=== PATIENT | male | born 1940 | race Caucasian/White ===

== ENCOUNTER 2021-04-14 06:52 | Emergency (ER) | payer OTHER, SELFPAY ==
--- NOTE | ~2021-04-14 | XR_ITS ---
EXAMINATION: XR CHEST CLINICAL INFORMATION: Weakness COMPARISON: None TECHNIQUE: Frontal view of the chest was obtained. FINDINGS: The lungs are well-expanded and clear of acute process. There is a 6 and a calcified nodule likely granuloma right lung base. Heart size and pulmonary vascularity is normal. No gross bony abnormality seen except for mild dextroscoliosis. XR/XR chest 1V IMPRESSION: Unremarkable chest examination. 6 mm calcified nodule likely granuloma right lung base.
[2021-04-14 07:05] LABS: Glucose, Whole Blood 52 mg/dL (60-115)
[2021-04-14 07:07] VITALS: BP 102/85; BP 110/59; PULSE 59; PULSE 80; RESP 20; TEMP 36.6; O2SAT 97; O2SAT 99; BMI 24.3
--- NOTE | 2021-04-14 07:09 | ED_ITS ---
HPI - General Adult General Chief complaint: Recheck/Abnormal Lab/Rx Stated complaint: Hypoglycemi Time Seen by Provider: 04/14/21 07:09 Source: patient, family and engineering consultant Mode of arrival: EMS Limitations: altered mental status History of Present Illness HPI narrative: old record found under [facility] with same unsure why he was put under this record but he has not been here since 2002 complaint: hypoglycemia Onset (ago): unknown (EMS notes BS 25 this AM but no further history noted and family not here no contact number provided or known by patient) Severity: moderate Relieving factors: eating (BS 52 with EMS able to eat here up to 60s after juice and sandwhich here ) Exacerbating factors: none Associated symptoms: denies other symptoms Treatments prior to arrival: none Related Data Home Medications Medication Instructions Recorded Confirmed aspirin 81 mg chewable tablet 81 mg PO DAILY 04/14/21 04/14/21 insulin NPH isoph U-100 human 100 50 unit SUBCUT BID 04/14/21 04/14/21 unit/mL subcutaneous suspension (Novolin N NPH U-100 Insulin isophane) lisinopril 10 mg tablet 10 mg PO DAILY 04/14/21 04/14/21 metformin 1,000 mg tablet 1,000 mg PO BID 04/14/21 04/14/21 metoprolol tartrate 25 mg tablet 12.5 mg PO BID 04/14/21 04/14/21 simvastatin 40 mg tablet 20 mg PO BEDTIME 04/14/21 04/14/21 Allergies Allergy/AdvReac Type Severity Reaction Status Date / Time No Known Allergies Allergy Verified 04/14/21 07:53 Review of Systems Review of Systems: ROS unable to be obtained due to altered mental status [facility] Past Medical History Source: old records reviewed Medical History CAD (coronary artery disease) Dementia Diabetes HLD (hyperlipidemia) HTN (hypertension) Surgical History H/O hernia repair S/P exploratory laparotomy Social History Social History Patient Tobacco Use Status: Former Tobacco user Advance Directives: No Advance Directives Information Provided: No Physical Exam ED Vital Signs: Vital Signs - 24 hr 04/14/21 07:07 04/14/21 11:31 04/14/21 13:39 Temperature 97.9 F Pulse Rate 59 75 68 Respiratory Rate 20 18 17 Blood Pressure 110/59 L 123/64 117/60 Pulse Oximetry 97 99 99 BMI result Body Mass Index 24.3 Appearance: Alert. Oriented X2. No acute distress. Eyes: Pupils equal, round and reactive to light. ENT: Pharynx normal. Neck: Normal inspection. Neck supple. CVS: Normal heart rate and rhythm. Pulses normal. Respiratory: No respiratory distress. Breath sounds normal. Abdomen: Soft and non-tender. Old scars noted Skin: Skin warm and dry. Normal skin color. Normal skin turgor. Extremities: No lower extremity edema. Neuro: Oriented X 2. No motor deficit. No sensory deficit. Course Course Course Narrative: discussed with son the patient is full care and does have dementia - he gets his insulin shipped from [place] and family unsure if there was an error or if something wrong was sent from [place], attempting to get insulin from home beka there to check. CM involved for possible VNA no change in EKG, K 5.9 will give dose of lokelma has appointment with PCP today only on 10mg lisinopril sugar remains stable has appointment with PCP today, hemoglobin A1c > 14. will discuss cutting NPH to 20 BID, patient has maintained BS since 745 at this point son is reliable and he can be DC home they have supplies at home he is not alone and has PCP appointment at 4pm Medical Decision Making MDM Narrative Medical decision making narrative: 81 yo male with hx of IDDM, HLD, CAD, HTN from what we can tell he is taking novolin and metformin from the EMS list but unsure when he took it or who gives it to him. He is pleasant but confused and has no complaints at this time. Will obtain labs, UA and CXR for infection. His abdomen is soft and nontender. Will attempt to reach family as well to discuss causes of his hypoglycemia. Lab Data Result diagrams: 04/14/21 07:53 04/14/21 07:53 Labs: Lab Results 04/14/21 04/14/21 04/14/21 Range/Units 07:00 07:46 07:53 WBC (4.8-10.8) X10*3/uL RBC (4.60-5.80) X10*6/uL Hgb (14.0-18.0) g/dl Hct (42.0-52.0) % MCV (80.0-98.0) fL MCH (27.0-33.0) pg MCHC (31.0-36.0) g/dl RDW (11.0-16.0) % Plt Count (160-400) X10*3/uL MPV (9.4-12.4) fL Immature Gran % (Auto) (0.0-0.4) % Neut % (Auto) (45-73) % Lymph % (Auto) (20-40) % [place] % (Auto) (2-11) % Eos % (Auto) (0-4) % Baso % (Auto) (0-2) % Lymph # (Auto) (1.2-4.9) X10*3/uL [place] # (Auto) (0.1-1.2) X10*3/uL Eos # (Auto) (0.0-0.4) X10*3/uL Baso # (Auto) (0.0-0.2) X10*3/uL Abs Immat Gran (auto) (0.00-0.03) X10*3/uL Absolute Neuts (auto) (2.0-8.3) x10*3/uL Absolute Nucleated RBC (0.0-0.012) X10*3/uL Nucleated RBC % (auto) (0.0-0.2) /100WBC Sodium 142 (135-145) mmol/L Potassium 5.9 H (3.3-5.1) mmol/L Chloride 108 (96-108) mmol/L Carbon Dioxide 26 (22-29) mmol/L Anion Gap 14 (12-20) BUN 11 (9-16) mg/dL Creatinine 0.95 (0.5-1.4) mg/dL Estim Creat Clear Calc 53.9 Estimated GFR > 60 POC Glucose 52 L* 65 (60-115) mg/dL Random Glucose 77 (60-115) mg/dL Estimat Average Glucose Hemoglobin A1c % % Calcium 9.4 (8.4-10.2) mg/dL Total Bilirubin 0.7 (0.0-1.0) mg/dL Direct Bilirubin 0.2 (0.0-0.5) mg/dL AST 17 (5-37) U/L ALT 16 (0-40) U/L Alkaline Phosphatase 79 (39-117) U/L Troponin I High Sens (<3.5-35.0) ng/L Total Protein 6.2 L (6.5-8.0) g/dL Albumin 3.7 (3.5-5.0) g/dL Urine Color Urine Appearance Urine pH (5.0-8.0) Ur Specific [place] (1.005-1.025) Urine Protein (NEG-TRACE) MG/DL Urine Glucose (UA) (NEG) MG/DL Urine Ketones (NEG) MG/DL Urine Blood (NEG) Urine Nitrite (NEG) Ur Leukocyte Esterase (NEG) 04/14/21 04/14/21 04/14/21 Range/Units 07:53 07:53 07:53 WBC 10.1 (4.8-10.8) X10*3/uL RBC 4.57 L (4.60-5.80) X10*6/uL Hgb 14.0 (14.0-18.0) g/dl Hct 41.9 L (42.0-52.0) % MCV 91.7 (80.0-98.0) fL MCH 30.6 (27.0-33.0) pg MCHC 33.4 (31.0-36.0) g/dl RDW 12.4 (11.0-16.0) % Plt Count 237 (160-400) X10*3/uL MPV 9.0 L (9.4-12.4) fL Immature Gran % (Auto) 1.0 H (0.0-0.4) % Neut % (Auto) 75.4 H (45-73) % Lymph % (Auto) 16.1 L (20-40) % [place] % (Auto) 5.8 (2-11) % Eos % (Auto) 1.4 (0-4) % Baso % (Auto) 0.3 (0-2) % Lymph # (Auto) 1.6 (1.2-4.9) X10*3/uL [place] # (Auto) 0.6 (0.1-1.2) X10*3/uL Eos # (Auto) 0.1 (0.0-0.4) X10*3/uL Baso # (Auto) 0.0 (0.0-0.2) X10*3/uL Abs Immat Gran (auto) 0.10 H (0.00-0.03) X10*3/uL Absolute Neuts (auto) 7.6 (2.0-8.3) x10*3/uL Absolute Nucleated RBC 0.000 (0.0-0.012) X10*3/uL Nucleated RBC % (auto) 0.0 (0.0-0.2) /100WBC Sodium (135-145) mmol/L Potassium (3.3-5.1) mmol/L Chloride (96-108) mmol/L Carbon Dioxide (22-29) mmol/L Anion Gap (12-20) BUN (9-16) mg/dL Creatinine (0.5-1.4) mg/dL Estim Creat Clear Calc Estimated GFR POC Glucose (60-115) mg/dL Random Glucose (60-115) mg/dL Estimat Average Glucose TNP Hemoglobin A1c % > 14.0 % Calcium (8.4-10.2) mg/dL Total Bilirubin (0.0-1.0) mg/dL Direct Bilirubin (0.0-0.5) mg/dL AST (5-37) U/L ALT (0-40) U/L Alkaline Phosphatase (39-117) U/L Troponin I High Sens < 3.5 (<3.5-35.0) ng/L Total Protein (6.5-8.0) g/dL Albumin (3.5-5.0) g/dL Urine Color Urine Appearance Urine pH (5.0-8.0) Ur Specific [place] (1.005-1.025) Urine Protein (NEG-TRACE) MG/DL Urine Glucose (UA) (NEG) MG/DL Urine Ketones (NEG) MG/DL Urine Blood (NEG) Urine Nitrite (NEG) Ur Leukocyte Esterase (NEG) 04/14/21 04/14/21 04/14/21 Range/Units 08:28 10:31 12:31 WBC (4.8-10.8) X10*3/uL RBC (4.60-5.80) X10*6/uL Hgb (14.0-18.0) g/dl Hct (42.0-52.0) % MCV (80.0-98.0) fL MCH (27.0-33.0) pg MCHC (31.0-36.0) g/dl RDW (11.0-16.0) % Plt Count (160-400) X10*3/uL MPV (9.4-12.4) fL Immature Gran % (Auto) (0.0-0.4) % Neut % (Auto) (45-73) % Lymph % (Auto) (20-40) % [place] % (Auto) (2-11) % Eos % (Auto) (0-4) % Baso % (Auto) (0-2) % Lymph # (Auto) (1.2-4.9) X10*3/uL [place] # (Auto) (0.1-1.2) X10*3/uL Eos # (Auto) (0.0-0.4) X10*3/uL Baso # (Auto) (0.0-0.2) X10*3/uL Abs Immat Gran (auto) (0.00-0.03) X10*3/uL Absolute Neuts (auto) (2.0-8.3) x10*3/uL Absolute Nucleated RBC (0.0-0.012) X10*3/uL Nucleated RBC % (auto) (0.0-0.2) /100WBC Sodium (135-145) mmol/L Potassium (3.3-5.1) mmol/L Chloride (96-108) mmol/L Carbon Dioxide (22-29) mmol/L Anion Gap (12-20) BUN (9-16) mg/dL Creatinine (0.5-1.4) mg/dL Estim Creat Clear Calc Estimated GFR POC Glucose 156 H 127 H 86 (60-115) mg/dL Random Glucose (60-115) mg/dL Estimat Average Glucose Hemoglobin A1c % % Calcium (8.4-10.2) mg/dL Total Bilirubin (0.0-1.0) mg/dL Direct Bilirubin (0.0-0.5) mg/dL AST (5-37) U/L ALT (0-40) U/L Alkaline Phosphatase (39-117) U/L Troponin I High Sens (<3.5-35.0) ng/L Total Protein (6.5-8.0) g/dL Albumin (3.5-5.0) g/dL Urine Color Urine Appearance Urine pH (5.0-8.0) Ur Specific [place] (1.005-1.025) Urine Protein (NEG-TRACE) MG/DL Urine Glucose (UA) (NEG) MG/DL Urine Ketones (NEG) MG/DL Urine Blood (NEG) Urine Nitrite (NEG) Ur Leukocyte Esterase (NEG) 04/14/21 04/14/21 Range/Units 12:44 13:14 WBC (4.8-10.8) X10*3/uL RBC (4.60-5.80) X10*6/uL Hgb (14.0-18.0) g/dl Hct (42.0-52.0) % MCV (80.0-98.0) fL MCH (27.0-33.0) pg MCHC (31.0-36.0) g/dl RDW (11.0-16.0) % Plt Count (160-400) X10*3/uL MPV (9.4-12.4) fL Immature Gran % (Auto) (0.0-0.4) % Neut % (Auto) (45-73) % Lymph % (Auto) (20-40) % [place] % (Auto) (2-11) % Eos % (Auto) (0-4) % Baso % (Auto) (0-2) % Lymph # (Auto) (1.2-4.9) X10*3/uL [place] # (Auto) (0.1-1.2) X10*3/uL Eos # (Auto) (0.0-0.4) X10*3/uL Baso # (Auto) (0.0-0.2) X10*3/uL Abs Immat Gran (auto) (0.00-0.03) X10*3/uL Absolute Neuts (auto) (2.0-8.3) x10*3/uL Absolute Nucleated RBC (0.0-0.012) X10*3/uL Nucleated RBC % (auto) (0.0-0.2) /100WBC Sodium (135-145) mmol/L Potassium (3.3-5.1) mmol/L Chloride (96-108) mmol/L Carbon Dioxide (22-29) mmol/L Anion Gap (12-20) BUN (9-16) mg/dL Creatinine (0.5-1.4) mg/dL Estim Creat Clear Calc Estimated GFR POC Glucose 75 (60-115) mg/dL Random Glucose (60-115) mg/dL Estimat Average Glucose Hemoglobin A1c % % Calcium (8.4-10.2) mg/dL Total Bilirubin (0.0-1.0) mg/dL Direct Bilirubin (0.0-0.5) mg/dL AST (5-37) U/L ALT (0-40) U/L Alkaline Phosphatase (39-117) U/L Troponin I High Sens (<3.5-35.0) ng/L Total Protein (6.5-8.0) g/dL Albumin (3.5-5.0) g/dL Urine Color STRAW Urine Appearance CLEAR Urine pH 6.5 (5.0-8.0) Ur Specific [place] <= 1.005 (1.005-1.025) Urine Protein NEG (NEG-TRACE) MG/DL Urine Glucose (UA) NEG (NEG) MG/DL Urine Ketones NEG (NEG) MG/DL Urine Blood NEG (NEG) Urine Nitrite NEG (NEG) Ur Leukocyte Esterase NEG (NEG) ECG Data Attestation: I personally reviewed and interpreted this ECG as follows: Interpretation: Rate: 60 Rhythm: NSR [place]: left Normal P waves. Normal GENE. Normal QRS complex. ST T wave : inverted t waves V1- V6 and III and aVF (noted on prior ECG 2002 but V4-V6 are new only prior ECG is from 2002) qTC: normal prior studies: from 2002 The study has been interpreted contemporaneously by me. . Critical Care Time Critical Care Time Critical Care Time: Yes Total Critical Care Time: 45 Attestation: IV dextrose, family discussions, repeat observations for hypoglycemia I attest to this time spent taking care of the patient Discharge Plan Discharge Clinical Impression: Hypoglycemia Patient Disposition: Home, Self-Care Instructions: Hypoglycemia in a Person with Diabetes (ED) Additional Instructions: return to ED for any worsening symptoms or concerns CUT NPH insulin dose from 50 units twice a day to 20 units twice a day. his blood sugars running too low please closely monitor and follow up with your primary care doctor go to primary care doctor appointment today Prescriptions: No Action simvastatin 40 mg Tablet 20 mg PO BEDTIME 0RF metformin 1,000 mg Tablet 1,000 mg PO BID 0RF lisinopril 10 mg Tablet 10 mg PO DAILY 0RF Novolin N NPH U-100 Insulin 100 unit/mL Suspension 50 unit SUBCUT BID 0RF aspirin 81 mg Tablet,Chewable 81 mg PO DAILY 0RF metoprolol tartrate 25 mg Tablet 12.5 mg PO BID 0RF Referrals: [facility]Outside[facility] - [facility] days ([facility] to help [facility] help[facility] ) Interventions: ED Discharge Assessment Last Done: 04/14/21 13:50 Discharge Date/Time: 04/14/21 13:52
--- NOTE | 2021-04-14 07:16 | ECG_ITS ---
Test Reason : ams Blood Pressure : / mmHG Vent. Rate : 060 BPM Atrial Rate : 060 BPM P-R Int : 168 ms QRS Dur : 094 ms QT Int : 486 ms P-R-T Axes : 052 -21 -14 degrees QTc Int : 486 ms Normal sinus rhythm Inferior infarct , age undetermined Anterolateral infarct , age undetermined Abnormal ECG No previous ECGs available Referred By: Sissy Krause Electronically Signed By:Memo Wilkinson
[2021-04-14 07:49] LABS: Glucose, Whole Blood 65 mg/dL (60-115)
[2021-04-14 07:57] LABS: MANUAL DIFF FLAG NO
[2021-04-14] MEDS: Dextrose 50 % 25 GM/50 ML SYRINGE IVPUSH (08:03)
[2021-04-14 08:04] LABS: Basophils Percent Auto 0.3 % (0-2); Eosinophils Absolute Auto 0.1 X10*3/uL (0.0-0.4); Eosinophils Percent Auto 1.4 % (0-4); Hematocrit 41.9 % (42.0-52.0); Lymphocytes Absolute Auto 1.6 X10*3/uL (1.2-4.9); Lymphocytes Percent Auto 16.1 % (20-40); Mean Corpuscular HGB Conc 33.4 g/dl (31.0-36.0); Mean Corpuscular Hemoglobin 30.6 pg (27.0-33.0); Mean Corpuscular Volume 91.7 fL (80.0-98.0); Monocytes Absolute Auto 0.6 X10*3/uL (0.1-1.2); Monocytes Percent Auto 5.8 % (2-11); Neutrophils Absolute Auto 7.6 x10*3/uL (2.0-8.3); Neutrophils Percent Auto 75.4 % (45-73); Platelet Count 237 X10*3/uL (160-400); Red Blood Count 4.57 X10*6/uL (4.60-5.80); Red Cell Distribution Width 12.4 % (11.0-16.0); White Blood Count 10.1 X10*3/uL (4.8-10.8)
[2021-04-14 08:19] LABS: Troponin-I High Sensitivity < 3.5 ng/L (<3.5-35.0)
[2021-04-14 08:31] LABS: Alanine Aminotransferase 16 U/L (0-40); Albumin Level 3.7 g/dL (3.5-5.0); Alkaline Phosphatase 79 U/L (39-117); Anion Gap 14 (12-20); Aspartate Amino Transferase 17 U/L (5-37); Bilirubin Direct 0.2 mg/dL (0.0-0.5); Bilirubin Total 0.7 mg/dL (0.0-1.0); Blood Urea Nitrogen 11 mg/dL (9-16); Calcium 9.4 mg/dL (8.4-10.2); Carbon Dioxide 26 mmol/L (22-29); Chloride 108 mmol/L (96-108); Creatinine Clr Calc Pharmacy 53.9; Estimated Glomerular Filt Rate > 60; Glucose Random 77 mg/dL (60-115); Potassium 5.9 mmol/L (3.3-5.1); Sodium 142 mmol/L (135-145); Total Protein 6.2 g/dL (6.5-8.0)
[2021-04-14 08:32] LABS: Glucose, Whole Blood 156 mg/dL (60-115)
[2021-04-14] MEDS: Sodium Zirconium Cyclosilicate 5 GM POWD.PACK PO (08:50)
--- NOTE | 2021-04-14 10:15 | PC.NURSE ---
pt alert, oriented to self, hx of dementia. arrived to ed via ambulance. per ems, pt's family reported poc in the low to mid 40s. pt's poc on arrival to ed was 59. pt asymptomatic, he was given juice and sandwich, med as documented. poc rechecked and resulted at 156. pt's son brought home meds to ed, meds evaluated by pharmacist. pt's vss, denies pain.
[2021-04-14 10:39] LABS: Hemoglobin A1c % > 14.0 %
[2021-04-14 10:42] LABS: Glucose, Whole Blood 127 mg/dL (60-115)
[2021-04-14 11:31] VITALS: BP 123/64; PULSE 75; RESP 18; O2SAT 99
[2021-04-14 12:35] LABS: Glucose, Whole Blood 86 mg/dL (60-115)
[2021-04-14 12:54] LABS: Appearance Urine CLEAR; Color Urine STRAW; Glucose Urine UA NEG (NEG); Leukocyte Esterase Urine NEG (NEG); Nitrite Urine NEG (NEG); PH 6.5 (5.0-8.0); Specific Gravity - Urine <= 1.005 (1.005-1.025); Urine Blood NEG (NEG); Urine Ketones NEG (NEG); Urine Protein NEG (NEG-TRACE)
[2021-04-14 13:18] LABS: Glucose, Whole Blood 75 mg/dL (60-115)
[2021-04-14 13:39] VITALS: BP 117/60; PULSE 68; RESP 17; O2SAT 99
--- NOTE | 2021-04-14 13:43 | MHC.CM.ED ---
Received notification from Dr Krause that family needs more help at home. Patient is primarily Maltese speaking. He was living in [place] and not taking care of himself. Patient's son and daughter in law moved patient to [place]. They are providing 24 hour care for patient. Patient has a history of dementia. PCP is at the [facility] in [place]. Patient received 2 Moderna vaccines. [facility] that [facility] requesting more help. Patient will be discharged home.
--- NOTE | 2021-04-14 13:45 | PC.NURSE ---
pt medically cleared for discharge. denies pain, vss. charge nurse notified son to hot die picker pt.
== END 2021-04-14 13:52 | disposition home or self-care (01) ==
PROVIDERS: Emergency Provider Emergency Medicine
DX: E11.649 Type 2 diabetes mellitus with hypoglycemia without coma (principal); I10 Essential (primary) hypertension; E78.5 Hyperlipidemia, unspecified; Z79.4 Long term (current) use of insulin; Z79.02 Long term (current) use of antithrombotics/antiplatelets; F03.90 Unspecified dementia, unspecified severity, without behavioral disturbance, psychotic disturbance, mood disturbance, and anxiety
CPT/HCPCS: 36415; 71045; 80048; 80076; 81003; 82947; 83036; 84484; 85025; 93005; 96374; 99284; 99291

== ENCOUNTER 2021-06-18 08:31 | Emergency (ER) | payer MEDICARE, SELFPAY ==
[2021-06-18 08:43] LABS: Glucose, Whole Blood 187 mg/dL (60-115)
[2021-06-18 08:47] VITALS: BP 161/83; PULSE 87; O2SAT 100
--- NOTE | 2021-06-18 08:52 | PC.NURSE ---
pt coming from home, per family pt is not taking medication - argument this am, pt states that he took his medications this morning. triage pending hire car driver.
[2021-06-18 08:57] VITALS: BP 120/48; PULSE 76; RESP 16; TEMP 36.4; O2SAT 100; BMI 22.1
--- NOTE | 2021-06-18 09:47 | ED.GENADULT ---
HPI - General Adult General Chief complaint: General Medical Stated complaint: PT & FAM WANTS DM MEDICATION EVAL Time Seen by Provider: 06/18/21 09:47 History of Present Illness HPI narrative: Patient is an 81-year-old male with a history of diabetes. Presented today wanting his diabetes medicines reviewed. Patient denies any suicidal homicidal ideation. Patient got into an argument with his family. Subsequently they sent him in for further now. Related Data Home Medications Medication Instructions Recorded Confirmed aspirin 81 mg chewable tablet 81 mg PO DAILY 04/14/21 04/14/21 insulin NPH isoph U-100 human 100 50 unit SUBCUT BID 04/14/21 04/14/21 unit/mL subcutaneous suspension (Novolin N NPH U-100 Insulin isophane) lisinopril 10 mg tablet 10 mg PO DAILY 04/14/21 04/14/21 metformin 1,000 mg tablet 1,000 mg PO BID 04/14/21 04/14/21 metoprolol tartrate 25 mg tablet 12.5 mg PO BID 04/14/21 04/14/21 simvastatin 40 mg tablet 20 mg PO BEDTIME 04/14/21 04/14/21 Allergies Allergy/AdvReac Type Severity Reaction Status Date / Time No Known Allergies Allergy Verified 06/18/21 08:47 Review of Systems Review of Systems: No fever no chills no chest pain or no nausea no vomiting. No systemic Yes all other systems are reviewed and are negative PMFSH Past Medical History Attestation statement: The following information was validated with the patient. Medical History CAD (coronary artery disease) Dementia Diabetes HLD (hyperlipidemia) HTN (hypertension) Surgical History H/O hernia repair S/P exploratory laparotomy Social History Social History Alcohol intake: never Patient Tobacco Use Status: Former Tobacco user Use of substances other than those prescribed or required for medical reasons: No Advance Directives: No Advance Directives Information Provided: Yes Physical Exam ED Vital Signs: Vital Signs - 24 hr 06/18/21 08:57 Temperature 97.6 F Pulse Rate 76 Respiratory Rate 16 Blood Pressure 120/48 L Pulse Oximetry 100 BMI result Body Mass Index 22.1 Appearance: Alert. Oriented X3. No acute distress. Eyes: Pupils equal, round and reactive to light. ENT: Pharynx normal. Neck: Normal inspection. Neck supple. No lymph nodes noted. No crepitus CVS: Normal heart rate and rhythm. Pulses normal. Normal S1 and S2 Respiratory: No respiratory distress. Breath sounds normal. No Wheezing. No rales Abdomen: Soft and nontender. No rigidity. No distention. good BS x4 Skin: Skin warm and dry. Normal skin color. Normal skin turgor. Extremities: No lower extremity edema. Neurovascular intact to all extremities. No Lacerations. No Rash Neuro: Oriented X 3. No motor deficit. No sensory deficit. Moving all extermities. No slurred speech Medical Decision Making MDM Narrative Medical decision making narrative: Patient's case discussed with family. Does not want any a dish no intervention. Patient's sugar here in the emergency department 180. He has enough medication at home. He is in no distress. He is not suicidal he is not homicidal. He is to be discharged home. Lab Data Labs: Lab Results 06/18/21 Range/Units 08:39 POC Glucose 187 H (60-115) mg/dL Discharge Plan Discharge Clinical Impression: Diabetes Patient Disposition: Home, Self-Care Instructions: Diabetes and Nutrition (ED) Prescriptions: No Action simvastatin 40 mg Tablet 20 mg PO BEDTIME 0RF metformin 1,000 mg Tablet 1,000 mg PO BID 0RF lisinopril 10 mg Tablet 10 mg PO DAILY 0RF Novolin N NPH U-100 Insulin 100 unit/mL Suspension 50 unit SUBCUT BID 0RF aspirin 81 mg Tablet,Chewable 81 mg PO DAILY 0RF metoprolol tartrate 25 mg Tablet 12.5 mg PO BID 0RF Referrals: Physician,None [Primary Care Provider] -
--- NOTE | 2021-06-18 09:52 | PC.NURSE ---
call placed to son to ask why patient was sent to ED. per son patient just wanted to get out of the house . son stated does not think patient needs anything from hospital. son is on his way to rock picker patient.
== END 2021-06-18 10:26 | disposition home or self-care (01) ==
PROVIDERS: Emergency Provider Emergency Medicine Emergency Medical Services
DX: E11.9 Type 2 diabetes mellitus without complications (principal); I10 Essential (primary) hypertension; I25.10 Atherosclerotic heart disease of native coronary artery without angina pectoris; F03.90 Unspecified dementia, unspecified severity, without behavioral disturbance, psychotic disturbance, mood disturbance, and anxiety
CPT/HCPCS: 82947; 99283; 99284